=== PATIENT | female | born 1950 | race Caucasian/White ===

== ENCOUNTER → 2017-04-10 | Outpatient (CLI) | payer MEDICARE, OTHER ==
[~2017-04-10] MED LIST: ADULT LOW DOSE81 MG PO; AMOXICILLIN875 MG PO; ARIXTRA SUBQ; ASPIRIN325 PO; ATORVASTATIN CA40 MG PO; CALCIUM 500 +1 EAC5 PO; CELEBREX 200 M200 MG PO; CELEXA 20 MG TA20 M1 PO; COLACE100 MG PO; CYMBALTA60 MG PO; EFFIENT10 MG PO; LOPRESSOR50 PO; MECLIZINE HCL25 M1 PO; MEDROLDOSEPACK PO; MOBIC15 MG PO; MOBIC7.5 MG; MULTIPLE VITAM1 EAC1 PO; NEURONTIN 300300 M1 PO; OXYIR 5 MG CAPSU5 M1 PO; PAIN RELIEF PM1 EAC2 PO; PERCOCET 5-3251 EACH PO; TYLENOL; ZESTRIL10 MG PO
== END ==
LOC: M.RAD 10:07
DX: Z12.31 Encounter for screening mammogram for malignant neoplasm of breast (principal)

== ENCOUNTER → 2017-06-27 | Outpatient (CLI) | payer MEDICARE, OTHER ==
--- NOTE | 2017-06-27 16:54 | 2DMMODE ---
[place] [address] 2 D/M-MODE ECHOCARDIOGRAM Name: EDDI LIVE Room: [facility]#: [id number] Admission: 06/27/17 Attend Phys: Pernell Sandy Discharge: Date of : 52 Date of Service: 06/27/17 1654 Report #: [id number] THIS REPORT FOR: //name// APPROVED REPORT Study performed: 06/27/2017 09:08:07 EXAM: Comprehensive 2D, Doppler, and color-flow Echocardiogram Patient Location: Out-Patient Status: routine BSA: 2.24 HR: 67 bpm BP: 137/76 mmHg Other Information Study Quality: Good Indications CAD 2D Dimensions LVEF(%): 66.88 (>50%) IVSd: 14.09 (7-11mm) LVOT Diam: 20.40 (18-24mm) LVDd: 41.79 mm PWd: 11.55 (7-11mm) Ascending Ao: 27.68 (22-36mm) LVDs: 26.47 (25-40mm) Aortic Root: 29.51 mm Caban's LVEF: 66.88 % Volumes Left Atrial Volume (Systole) LA ESV Index: 16.80 mL/m2 Aortic Valve AoV Peak Cory.: 1.20 m/s AO Peak Gr.: 5.80 mmHg LVOT Max P.76 mmHg AO Mean Gr.: 3.32 mmHg LVOT Mean P.26 mmHg LVOT Max V: 0.83 m/s AO V2 VTI: 28.10 cm LVOT Mean V: 0.51 m/s ALLEN (VTI): 2.41 cm2 LVOT V1 VTI: 20.69 cm Mitral Valve E/A Ratio: 1.05 MV Decel. Time: 221.70 [place] [address] 2 D/M-MODE ECHOCARDIOGRAM Name: EDDI LIVE Room: [facility]#: [id number] Admission: 06/27/17 Attend Phys: Pernell Sandy Discharge: Date of : 52 Date of Service: 06/27/17 1654 Report #: [id number] MV E Max Cory.: 0.81 m/s MV PHT: 64.29 ms MVA (PHT): 3.42 cm2 TDI E/Lateral E': 9.00 E/Medial E': 11.57 Medial E' Cory.: 0.07 m/s Lateral E' Cory.: 0.09 m/s Pulmonary Valve PV Peak Cory.: 0.72 m/s PV Peak Gr.: 2.04 mmHg Tricuspid Valve TR Peak Gr.: 22.10 mmHg RVSP: 27.10 mmHg Left Ventricle The left ventricle is normal size. There is normal LV segmental wall motion. There is normal left ventricular wall thickness. Left ventricular systolic function is normal. The left ventricular ejection fraction is within the normal range. LVEF is 55-60%. The left ventricular diastolic function is normal. Right Ventricle The right ventricle is normal size. The right ventricular systolic function is normal. Atria The left atrium size is normal. The right atrium size is normal. Aortic Valve The aortic valve is normal in structure. No aortic regurgitation is present. There is no aortic valvular stenosis. Mitral Valve The mitral valve is normal in structure. Mild mitral regurgitation. No evidence of mitral valve stenosis. Tricuspid Valve The tricuspid valve is normal in structure. Mild tricuspid regurgitation. The RVSP is _27.1 mmHg. Pulmonic Valve The pulmonary valve is normal in structure. [place] [address] 2 D/M-MODE ECHOCARDIOGRAM Name: EDDI LIVE Room: [facility]#: [id number] Admission: 06/27/17 Attend Phys: Pernell Sandy Discharge: Date of : 52 Date of Service: 06/27/17 1654 Report #: [id number] Great Vessels The aortic root is normal in size. IVC is normal in size and collapses with >50% inspiration Pericardium There is no pericardial effusion. <Conclusion> The left ventricle is normal size. There is normal left ventricular wall thickness. Left ventricular systolic function is normal. The left ventricular ejection fraction is within the normal range. LVEF is 55-60%. The left ventricular diastolic function is normal. The right ventricle is normal size. The left atrium size is normal. The aortic valve is normal in structure. The mitral valve is normal in structure. Mild mitral regurgitation. The tricuspid valve is normal in structure. Mild tricuspid regurgitation. The RVSP is _27.1 mmHg. IVC is normal in size and collapses with >50% inspiration There is no pericardial effusion. There is normal LV segmental wall motion. <ELECTRONICALLY SIGNED> By: Quique Bajwa MD, FACC 06/27/17 1654 [id number] Quique Bajwa MD, FACC /INF
== END ==
LOC: M.CRD 08:48
DX: I25.10 Atherosclerotic heart disease of native coronary artery without angina pectoris (principal); Z88.8 Allergy status to other drugs, medicaments and biological substances; Z88.1 Allergy status to other antibiotic agents; Z88.6 Allergy status to analgesic agent